=== PATIENT | female | born 1990 | race Caucasian/White ===

== ENCOUNTER 2017-03-31 12:50 | Emergency (ER) | payer BC ==
[~2017-03-31 12:50] MED LIST: MOTRIN600 MG PO; PERCOCET 5/3251 TA1 PO; PRENATAL COMPLE1 TAB; PROCTOCORT28.35 GM
== END 2017-03-31 15:25 | disposition home or self-care (01) ==
LOC: D.ER 12:50
DX: O26.891 Other specified pregnancy related conditions, first trimester (principal); Z3A.10 10 weeks gestation of pregnancy; M54.5 Low back pain; M54.2 Cervicalgia; V49.40XA Driver injured in collision with unspecified motor vehicles in traffic accident, initial encounter; Y93.89 Activity, other specified; Y92.89 Other specified places as the place of occurrence of the external cause

== ENCOUNTER 2017-04-04 16:11 | Emergency (ER) | payer BC | END 2017-04-04 21:06 | disposition home or self-care (01) | LOC: D.ER 16:11 | DX: M54.12 Radiculopathy, cervical region (principal) ==

== ENCOUNTER 2017-09-28 17:37 | Outpatient (CLI) | payer BC ==
[2017-09-28 18:24] LABS: BASOPHILS 0.1 % (0-2); EOSINOPHILS 2.5 % (0-7); HEMATOCRIT 30.1 % (36.0-48.0); HEMOGLOBIN 9.5 g/dL (12-16); IMMATURE GRANULOCYTES 1.5 % (0-5); LYMPHOCYTES 17.9 % (15-50); MCH 25.5 pg (26.0-34.0); MCHC 31.6 g/dL (31.0-37.0); MCV 80.9 fL (80.0-100.0); MEAN PLATELET VOLUME 9.9 fL (7.4-10.4); MONOCYTES 9.1 % (2-11); NEUTROPHILS 68.9 % (40-80); PLATELET COUNT 255 10x3/uL (130-400); RBC 3.72 10x6/uL (4.00-5.40); RDW 14.4 % (11.5-14.5); WBC 8.8 10x3/uL (4.8-10.8)
[2017-09-28 18:34] LABS: CALC OSMOLALITY 270 mosm/kg (275-300); CALCIUM 8.3 mg/dL (8.5-10.1); CARBON DIOXIDE 24.8 mmol/L (21.0-32.0); CHLORIDE - SERUM 103 mmol/L (98-107); CREATININE - SERUM 0.5 mg/dL (0.6-1.3); GLUCOSE 91 mg/dL (74-106); POTASSIUM - SERUM 3.5 mmol/L (3.5-5.1); SODIUM 137 mmol/L (136-145); UREA NITROGEN 5 mg/dL (7-18); eGFR NON AFRICAN AMERICAN > 90 mL/min (90-120)
[2017-10-20 06:35] VITALS: BMI 23.6
== END 2017-09-28 19:22 | disposition home or self-care (01) ==
LOC: D.LDO 17:37
PROVIDERS: Obstetrics & Gynecology
DX: O26.893 Other specified pregnancy related conditions, third trimester (principal); Z3A.35 35 weeks gestation of pregnancy

== ENCOUNTER → 2017-10-01 12:58 | Outpatient (CLI) | payer BC ==
[~2017-10-01 12:58] MED LIST changes: +CYCLOBENZAPRINE5 MG PO; +HYDROCODON-ACE1 EAC7 PO; +IBUPROFEN600 MG PO
[2017-10-01 13:41] LABS: BASOPHILS 0.1 % (0-2); EOSINOPHILS 2.5 % (0-7); HEMATOCRIT 30.1 % (36.0-48.0); HEMOGLOBIN 9.5 g/dL (12-16); LYMPHOCYTES 15.4 % (15-50); MCH 25.5 pg (26.0-34.0); MCHC 31.6 g/dL (31.0-37.0); MCV 80.9 fL (80.0-100.0); MEAN PLATELET VOLUME 10.3 fL (7.4-10.4); MONOCYTES 9.1 % (2-11); NEUTROPHILS 71.9 % (40-80); PLATELET COUNT 230 10x3/uL (130-400); RBC 3.72 10x6/uL (4.00-5.40); RDW 14.5 % (11.5-14.5); WBC 8.1 10x3/uL (4.8-10.8)
[2017-10-01 13:44] LABS: ALBUMIN 2.3 g/dL (3.4-5.0); ALKALINE PHOSPHATASE 149 U/L (46-116); ALT (SGPT) 13 U/L (10-68); BILIRUBIN - TOTAL 0.36 mg/dL (0.2-1.3); CALC OSMOLALITY 269 mosm/kg (275-300); CALCIUM 8.7 mg/dL (8.5-10.1); CARBON DIOXIDE 25.4 mmol/L (21.0-32.0); CHLORIDE - SERUM 102 mmol/L (98-107); CREATININE - SERUM 0.6 mg/dL (0.6-1.3); GLUCOSE 86 mg/dL (74-106); POTASSIUM - SERUM 3.3 mmol/L (3.5-5.1); PROTEIN - SERUM 6.4 g/dL (6.4-8.2); SODIUM 137 mmol/L (136-145); UREA NITROGEN 4 mg/dL (7-18); eGFR NON AFRICAN AMERICAN > 90 mL/min (90-120)
[2017-10-01 14:10] LABS: APPEARANCE HAZY (CLEAR); BILIRUBIN NEGATIVE (NEGATIVE); COLOR YELLOW (YELLOW); GLUCOSE 100 mg/dL (NEGATIVE); KETONE NEGATIVE (NEGATIVE); NITRITE NEGATIVE (NEGATIVE); PROTEIN NEGATIVE (NEGATIVE)
[2017-10-01 14:13] LABS: BACTERIA MANY /hpf (NONE SEEN); EPITHELIAL CELLS 0-5 /hpf (0-5); MUCUS <1+ /lpf (NONE SEEN); WHITE CELLS - URINE 0-5 /hpf (0-5)
[2017-10-20 06:35] VITALS: BMI 23.6
== END | disposition home or self-care (01) ==
LOC: D.ER 12:58 → D.LDO 12:58 → EDSTATUS 15:12
PROVIDERS: Family Medicine
DX: O26.893 Other specified pregnancy related conditions, third trimester (principal); Z3A.36 36 weeks gestation of pregnancy; R42 Dizziness and giddiness; R55 Syncope and collapse

== ENCOUNTER 2017-10-11 01:15 | Outpatient (CLI) | payer BC ==
[~2017-10-11 01:15] MED LIST changes: -CYCLOBENZAPRINE5 MG PO; -HYDROCODON-ACE1 EAC7 PO; -IBUPROFEN600 MG PO
[2017-10-11] MEDS ORDERED: CYCLOBENZAPRINE5 MG PO (01:22)
[2017-10-20 06:35] VITALS: BMI 23.6
== END 2017-10-11 03:20 ==
LOC: D.LDO 01:15
DX: Z34.83 Encounter for supervision of other normal pregnancy, third trimester (principal); Z3A.37 37 weeks gestation of pregnancy

== ENCOUNTER 2017-10-20 05:52 | Inpatient (IN) | payer BC ==
[~2017-10-20] VITALS: Ht 165.1 cm; Wt 64.4 kg
[~2017-10-20 05:52] MED LIST changes: +CYCLOBENZAPRINE5 MG PO
[2017-10-20 06:35] VITALS: BP 109/64; Ht 165.1 cm; Wt 64.4 kg
[2017-10-20 08:25] LABS: APPEARANCE SLT CLOUDY (CLEAR); COLOR YELLOW (YELLOW)
[2017-10-20 08:26] LABS: BILIRUBIN NEGATIVE (NEGATIVE); GLUCOSE NEGATIVE (NEGATIVE); KETONE NEGATIVE (NEGATIVE); NITRITE NEGATIVE (NEGATIVE); PROTEIN TRACE mg/dL (NEGATIVE)
[2017-10-20 08:30] LABS: BACTERIA MANY /hpf (NONE SEEN); HEMATOCRIT 31.3 % (36.0-48.0); HEMOGLOBIN 9.6 g/dL (12-16); MCH 23.6 pg (26.0-34.0); MCHC 30.7 g/dL (31.0-37.0); MCV 76.9 fL (80.0-100.0); MEAN PLATELET VOLUME 10.6 fL (7.4-10.4); RBC 4.07 10x6/uL (4.00-5.40); RDW 15.7 % (11.5-14.5); WBC 7.7 10x3/uL (4.8-10.8)
[2017-10-20 08:32] LABS: MUCUS <1+ /lpf (NONE SEEN)
[2017-10-20 08:34] LABS: RED CELLS - URINE OCC /hpf (0-5); WHITE CELLS - URINE 0-5 /hpf (0-5)
[2017-10-20 22:00] VITALS: BP 118/81
[2017-10-21 06:15] VITALS: BP 102/61
[2017-10-21 06:41] LABS: HEMATOCRIT 27.6 % (36.0-48.0); HEMOGLOBIN 8.7 g/dL (12-16); LYMPHOCYTES 21.4 % (15-50); MCH 23.7 pg (26.0-34.0); MCHC 31.5 g/dL (31.0-37.0); MCV 75.2 fL (80.0-100.0); MEAN PLATELET VOLUME 10.4 fL (7.4-10.4); NEUTROPHILS 67.8 % (40-80); PLATELET COUNT 203 10x3/uL (130-400); RBC 3.67 10x6/uL (4.00-5.40); WBC 7.8 10x3/uL (4.8-10.8)
[2017-10-21 07:27] LABS: RAPID PLASMA REAGIN Non Reactive (Non Reactive)
[2017-10-21 08:00] VITALS: BP 117/80
[2017-10-21 14:00] VITALS: BP 111/71
[2017-10-21] MEDS ORDERED: HYDROCODON-ACE1 EAC7 PO (16:48)
[2017-10-21] MEDS ORDERED: IBUPROFEN600 MG PO (16:49)
== END 2017-10-21 18:00 | disposition home or self-care (01) | DRG 775 ==
LOC: D.LD 05:52
PROVIDERS: Obstetrics & Gynecology
PROC: 10E0XZZ Delivery of Products of Conception, External Approach (ICD-10-PCS; principal; 2017-10-20)
PROC: 10907ZC Drainage of Amniotic Fluid, Therapeutic from Products of Conception, Via Natural or Artificial Opening (ICD-10-PCS; 2017-10-20)
DX: O99.344 Other mental disorders complicating childbirth (principal); Z3A.39 39 weeks gestation of pregnancy; Z37.0 Single live birth